=== PATIENT | female | born 1970 | race Caucasian/White ===

== ENCOUNTER → 2018-05-20 17:21 | Outpatient (CLI) | payer BC, SELFPAY ==
[2018-05-20 19:34] LABS: TSH w/ Reflex to FT4 0.55 uIU/mL (0.47-4.68)
== END ==
PROVIDERS: Family Provider Specialist; PCP Nurse Practitioner Family; Visit Provider Specialist
DX: N92.1 Excessive and frequent menstruation with irregular cycle (principal)
CPT/HCPCS: 36415; 84443

== ENCOUNTER → 2019-01-11 08:36 | Outpatient (CLI) | payer BC, SELFPAY ==
--- NOTE | 2019-01-11 | DI.US.S_ITS ---
ULTRASOUND OF RIGHT BREAST AND AXILLA: 01/11/2019 CLINICAL: Palpable right axilla lump. Comparison is made to exams dated: 01/11/2019 mammogram - [facility], 03/04/2018 mammogram, 02/20/2017 mammogram, 02/17/2017 mammogram, 02/15/2016 mammogram, and 02/09/2015 mammogram - [facility]. Color flow ultrasound of the right breast axilla was performed. Colby scale images of the real-time examination were reviewed. Corresponding to the recently newly palpated right axillary abnormality is a probable 3.1 cm x 1.2 cm x 1.5 cm oval lipoma with a circumscribed margin. This oval lipoma is isoechoic with a well-defined boundary and no posterior acoustic shadowing or enhancement. This correlates as palpated but was not seen on the prior mammogram. No suspicious right axillary adenopathy. IMPRESSION: PROBABLY BENIGN Probable 3.1 cm oval lipoma in the right axilla corresponding to the newly palpated abnormality is probably benign. Alternatively, this could represent an area fat necrosis. Follow-up mammogram and ultrasound in 6 months is recommended to demonstrate stability. The patient was advised to return for re-evaluation if a significant change to the abnormality is felt by the medical office rep. No suspicious right axillary adenopathy. This exam was interpreted at Station ID: [id number]. Electronically Signed By: Tavo Chavez M.D. slc/:01/11/2019 11:17:49 copy to: ALEX CROSS letter sent: Followup Recommended Ultrasound BI-RADS: 3 Probably benign
--- NOTE | 2019-01-11 08:37 | DI.MG.S_ITS ---
BILATERAL DIGITAL DIAGNOSTIC MAMMOGRAM 3D/2D: 01/11/2019 CLINICAL: Axillary lump. Comparison is made to exams dated: 03/04/2018 mammogram, 02/20/2017 mammogram, 02/17/2017 mammogram, and 02/15/2016 mammogram - [facility]. There are scattered fibroglandular elements in both breasts. Palpable abnormality in the right axilla. No significant masses, calcifications, or other findings are seen in either breast. There is increased fibroglandular density in the axillary tail/axilla. There is a similar appearing small right axillary lymph node. IMPRESSION: INCOMPLETE: NEEDS ADDITIONAL IMAGING EVALUATION There is no mammographic evidence of malignancy. Targeted ultrasound is recommended and will immediately follow this examination. This exam was interpreted at Station ID: [id number]. NOTE: For mammograms, a report in lay terms will be sent to the patient. Approximately 15% of breast malignancies will not be visualized mammographically. In the management of a palpable breast mass, a negative mammogram must not discourage biopsy of a clinically suspicious lesion. Electronically Signed By: Tavo Chavez M.D. slc/:01/11/2019 11:20:44 copy to: ALEX CROSS ACR BI-RADS Category 0: Incomplete [id number]
== END ==
PROVIDERS: Family Provider Specialist; PCP Nurse Practitioner Family; Visit Provider Specialist
DX: R92.8 Other abnormal and inconclusive findings on diagnostic imaging of breast (principal); N63.31 Unspecified lump in axillary tail of the right breast
CPT/HCPCS: 76642; 77066; G0279

== ENCOUNTER → 2020-01-13 12:38 | Outpatient (CLI) | payer BC, SELFPAY ==
--- NOTE | 2020-01-13 12:39 | DI.MG.S_ITS ---
BILATERAL DIGITAL DIAGNOSTIC MAMMOGRAM 3D/2D: 01/13/2020 CLINICAL: Short term follow up right breast. Due bilaterally. Family history of breast cancer. Comparison is made to exams dated: 01/11/2019 mammogram - [facility], 03/04/2018 mammogram, and 02/20/2017 mammogram - [facility]. There are scattered fibroglandular elements in both breasts. No significant masses, calcifications, or other findings are seen in either breast. IMPRESSION: INCOMPLETE: NEEDS ADDITIONAL IMAGING EVALUATION There is no abnormality seen in the right axilla to correspond with the palpable abnormality and ultrasound finding in the right axilla, however, ultrasound is recommended. This exam was interpreted at Station ID: [id number]. NOTE: For mammograms, a report in lay terms will be sent to the patient. Approximately 15% of breast malignancies will not be visualized mammographically. In the management of a palpable breast mass, a negative mammogram must not discourage biopsy of a clinically suspicious lesion. Electronically Signed By: Evan neville/arvin:01/13/2020 13:13:45 copy to: ALEX CROSS ACR BI-RADS Category 0: Incomplete [id number]
--- NOTE | 2020-01-13 12:39 | DI.US.S_ITS ---
ULTRASOUND OF RIGHT AXILLA: 01/13/2020 CLINICAL: 6 month follow-up of lump in right axilla region. Comparison is made to exams dated: 01/13/2020 mammogram, 01/11/2019 ultrasound, 01/11/2019 mammogram - [facility], 03/04/2018 mammogram, 02/20/2017 mammogram, and 02/17/2017 mammogram - [facility]. Color flow and real-time ultrasound of the right axilla were performed on the areas of interest. No discrete cystic or solid mass lesion identified in the area of palpable abnormality. The previous ultrasound finding of a suspected subcutaneous lipoma is not discretely identified on the current study. IMPRESSION: NEGATIVE There is no sonographic evidence of malignancy. There is no abnormality seen in the right axilla to correspond with the palpable abnormality in the right axilla. Recommend follow up clinically. A 1 year screening mammogram is recommended. This exam was interpreted at Station ID: [id number]. Electronically Signed By: Evan neville/:01/13/2020 15:22:27 copy to: ALEX CROSS letter sent: Clinical Evaluation Ultrasound BI-RADS: 1 Negative
== END ==
PROVIDERS: Family Provider Specialist; PCP Nurse Practitioner Family; Referring Provider Specialist; Visit Provider Specialist
DX: R92.8 Other abnormal and inconclusive findings on diagnostic imaging of breast (principal); Z80.3 Family history of malignant neoplasm of breast
CPT/HCPCS: 76642; 77066; G0279